=== PATIENT | female | born 1995 | race Caucasian/White ===

== ENCOUNTER 2020-09-11 14:15 | Emergency (ER) | payer SELFPAY ==
[~2020-09-11] VITALS: Ht 157.5 cm; Wt 49.9 kg
[2020-09-11 14:17] VITALS: BP 118/64; Ht 157.5 cm; Wt 49.9 kg
== END 2020-09-11 15:03 | disposition home or self-care (01) ==
LOC: ED 14:15
DX: U07.1 COVID-19 (principal); Z88.2 Allergy status to sulfonamides; Z88.0 Allergy status to penicillin
CPT/HCPCS: U0003